=== PATIENT | female | born 1970 | race Caucasian/White ===

== ENCOUNTER 2017-05-27 14:38 | Emergency (ER) | payer OTHER, MEDICAID ==
[2017-05-27 14:48] VITALS: BP 160/78; BMI 25.7
[2017-05-27] MEDS ORDERED: LR 1000 ML IV 1,000 ML IV ONE ×2 (15:16→15:19)
--- NOTE | 2017-05-27 15:16 | DR.NAUSEAF ---
HPI - Time Seen Time seen: 15:05 - Primary Care Physician Primary Care Physician: STAR TAFOYA MD - Complaints Chief Complaint Doctors Comments: Patient presents to the ED for evaluation of nausea and vomiting for two days. Chief Complaint:: PT C/O INCREASED WEIGHT LOSS AND NOT BEING ABLE TO KEEP ANYTHING DOWN PT C/O BEING WEAK AND HX SEIZURES, Self Treatment fo Chief Complaint: PT C/O SMOKING THC FOR HER HEALTH .. BR - Source History Provided: Patient - Mode of Arrival Mode of Arrival: Ambulatory - Timing Onset of Chief Complaint: 04/30/15 PMH - PMH Past Medical History: No Past Surgical History: Yes Past Surgical History Comment: C-SECTIONS TIMES ONE, EDOMETRIOSIS . - Family History History of Family Medical Conditions: No - Social History Does patient currently use any type of tobacco product: No Have you used tobacco products in the last 12 months: No Type of Tobacco Use: None Does any household member use tobacco: No Alcohol Use: None Do you use any recreational Drugs:: No Lives With: Family Lives Where: Home - infectious screening In the last 2 months have you had wt loss of >10#?: NO Have you had fever, night sweats or hemotysis?: No Have you traveled outside the country in the last 6 months?: No Isolation: Standard ROS - Review of Systems Eyes: No Symptoms Reported ENTM: No Symptoms Reported Respiratoy: No Symptoms Reported Cardiovascular: No Symptoms Reported Gastrointestinal/Abdominal: No Symptoms Reported Genitourinary: No Symptoms Reported Neurological: No Symptoms Reported Musculoskeletal: No Symptoms Reported Integumentary: No Symptoms Reported Hematologic/Lymphatic: No Symptoms Reported Endocrine: No Symptoms Reported Psychiatric: No Symptoms Reported All Other Systems: Reviewed and Negative PE - Vital Signs Vitals: Temperature 98.6 F Pulse Rate 112 Respiratory Rate 20 Blood Pressure 160/78 O2 Sat by Pulse Oximetry 98 - General Limitations: No Limitations General Appearance: Alert, In No Apparent Distress - Head Head Exam: Normal Inspection, Atraumatic - Eyes Eye exam: Normal Appearance, PERRL, EOMI - ENT ENT Exam: Normal Exam - Neck Neck Exam: Normal Inspection, Full ROM - Chest Chest Inspection: Normal Inspection, Symmetric Chest Wall Rise - Respiratory Respiratory Exam: Normal Lung Sounds Bilat, Accessory Muscle Use Respiratory Exam: Bilateral Clear to Auscultation - Cardiovascular Cardiovascular Exam: Regular Rate, Normal Rhythm - Abdominal Exam Abdominal Exam: Normal Inspection, Normal Bowel Sounds Abdominal Tenderness: negative: RUQ, RLQ, LUQ, LLQ, Epigastrium, Suprapubic, Diffuse, Mild, Moderate, Severe, Other - Rectal Rectal Exam: Deferred - External Exam: Female: Deferred : Speculum Exam (Female): Deferred : Bimanual Exam (female): Deferred - Back Back Exam: Normal Inspection, Full ROM - Neurologic Neurological Exam: Alert, Oriented X3, CN II-XII Intact - Psychiatric Psychiatric Exam: Normal Affect - Skin Skin Exam: Warm, Dry, Intact Course - Reevaluation 1st: Improved ROR - Labs Reviewed Laboratory Results Reviewed?: Yes (low potassium) Result Diagrams: 05/27/17 15:29 05/27/17 15:29 Laboratory: WBC 8.6 X10^3/uL (3.6-10.0) 05/27/17 15:29 RBC 4.19 X10^6/uL (3.5-5.4) 05/27/17 15:29 Hgb 12.6 g/dL (12.0-16.0) 05/27/17 15:29 Hct 36.7 % (36.0-47.0) 05/27/17 15:29 MCV 87.6 fL (80.0-100.0) 05/27/17 15:29 MCH 30.1 pg (27.0-34.0) 05/27/17 15:29 MCHC 34.4 g/dL (33.0-35.0) 05/27/17 15:29 RDW 13.8 % (11.6-16.5) 05/27/17 15:29 Plt Count 175 X10^3/uL (150.0-450.0) 05/27/17 15:29 MPV 9.9 fL (7.4-11.0) 05/27/17 15:29 Neut % (Auto) 66.3 % (42.0-75.0) 05/27/17 15:29 Lymph % (Auto) 24.2 % (21.0-51.0) 05/27/17 15:29 Cook % (Auto) 7.1 % (0.0-13.0) 05/27/17 15:29 Eos % (Auto) 1.9 % (0.9-2.9) 05/27/17 15:29 Baso % (Auto) 0.5 % (0.2-1.0) 05/27/17 15:29 Neut # (Auto) 5.7 x10^3/uL (2.2-4.8) H 05/27/17 15:29 Lymph # (Auto) 2.1 X10^3/uL (1.3-2.9) 05/27/17 15:29 Cook # (Auto) 0.6 x10^3/uL (0.3-0.8) 05/27/17 15:29 Eos # (Auto) 0.2 x10^3/uL (0.0-0.2) 05/27/17 15:29 Baso # (Auto) 0.0 X10^3/uL (0.0-0.1) 05/27/17 15: Absolute Nucleated RBC 0.0 /100WBC 05/27/17 15: Sodium 141 mmol/L (136-145) 05/27/17 15:29 Corrected Sodium TNP 05/27/17 15: Potassium 2.8 mmol/L (3.5-5.1) L* 05/27/17 15: Chloride 105 mmol/L (98-107) 05/27/17 15: Carbon Dioxide 19.6 mmol/L (21-32) L 05/27/17 15:29 BUN 8 mg/dL (7-18) 05/27/17 15: Creatinine 0.97 mg/dL (0.55-1.02) 05/27/17 15:29 Est GFR (MDRD) Af Amer > 60 (>60) 05/27/17 15:29 Est GFR (MDRD) Non-Af > 60 (>60) 05/27/17 15:29 Glucose 83 mg/dL (65-99) 05/27/17 15: Calcium 8.3 mg/dL (8.5-10.1) L 05/27/17 15:29 Corrected Calcium TNP 05/27/17 15:29 Total Bilirubin 0.50 mg/dL (0.2-1.0) 05/27/17 15: AST 30 Units/L (15-37) 05/27/17 15:29 ALT 31 Units/L (12-78) 05/27/17 15: Alkaline Phosphatase 67 Units/L (46-116) 05/27/17 15:29 C-Reactive Protein 3.10 mg/L (0-3.0) H 05/27/17 15: Total Protein 7.0 g/dL (6.4-8.2) 05/27/17 15: Albumin 3.9 g/dL (3.4-5.0) 05/27/17 15: Globulin 3.1 g/dL (2.5-4.5) 05/27/17 15: Albumin/Globulin Ratio 1.3 Ratio (1.1-2.1) 05/27/17 15:29 Specimen Type Random urine 05/27/17 15:25 Urine Color Yellow (YELLOW) 05/27/17 15:25 Urine Appearance Clear (CLEAR) 05/27/17 15:25 Urine pH 6.5 (5.0 - 8.0) 05/27/17 15:25 Ur Specific Lizella 1.010 (1.000-1.030) 05/27/17 15:25 Urine Protein Negative (NEGATIVE) 05/27/17 15:25 Urine Glucose (UA) Negative (NEGATIVE) 05/27/17 15:25 Urine Ketones 3+ (NEGATIVE) 05/27/17 15:25 Urine Occult Blood 1+ (NEGATIVE) 05/27/17 15:25 Urine Nitrite Negative (NEGATIVE) 05/27/17 15:25 Urine Bilirubin Negative (NEGATIVE) 05/27/17 15:25 Urine Urobilinogen Normal (NORMAL) 05/27/17 15:25 Ur Leukocyte Esterase Negative (NEGATIVE) 05/27/17 15:25 Urine RBC 0-2 /HPF (NONE SEEN) 05/27/17 15:25 Urine WBC 0-2 /HPF (NONE SEEN) 05/27/17 15:25 Ur Squamous Epith Cells Few /HPF (NEGATIVE) 05/27/17 15:25 Urine Bacteria Trace /HPF (NEGATIVE) 05/27/17 15:25 Ur Culture Indicated? No/not indicated 05/27/17 15:25 - XRAY XRAY Interpreted by: Radiologist (Acute Abdomen series: No acute cardiopulmonary disease. No evidence for acute abdominal pathology identified) - Diagnosis Discharge Problem: Hypokalemia, Gastroenteritis, Dehydration, mild - Discharge Plan Condition: Stable - Follow ups/Referrals Follow ups/Referrals: [facility],None [Primary Care Provider] - 3 days - Instructions
[2017-05-27 15:46] LABS: BILIRUBIN,URINE NEGATIVE (NEGATIVE); BLOOD/HEMOGLOBIN,URINE 1+ (NEGATIVE); GLUCOSE, URINE NEGATIVE (NEGATIVE); KETONES,URINE 3+ (NEGATIVE); LEUKOCYTE ESTERASE ,URINE NEGATIVE (NEGATIVE); NITRITES,URINE NEGATIVE (NEGATIVE); PH,URINE 6.5 (5.0 - 8.0); PROTEIN,URINE NEGATIVE (NEGATIVE); UROBILINOGEN,URINE NORMAL (NORMAL)
[2017-05-27 15:46] LABS: BASOPHILS % (AUTO) 0.5 % (0.2-1.0); EOSINOPHILS # (AUTO) 0.2 x10^3/uL (0.0-0.2); EOSINOPHILS % (AUTO) 1.9 % (0.9-2.9); HEMATOCRIT 36.7 % (36.0-47.0); HEMOGLOBIN 12.6 g/dL (12.0-16.0); LYMPHOCYTES # (AUTO) 2.1 X10^3/uL (1.3-2.9); LYMPHOCYTES % (AUTO) 24.2 % (21.0-51.0); MEAN CORPUSCULAR HEMOGLOBIN 30.1 pg (27.0-34.0); MEAN CORPUSCULAR HGB CONC 34.4 g/dL (33.0-35.0); MEAN CORPUSCULAR VOLUME 87.6 fL (80.0-100.0); MEAN PLATELET VOLUME 9.9 fL (7.4-11.0); MONOCYTES # (AUTO) 0.6 x10^3/uL (0.3-0.8); MONOCYTES % (AUTO) 7.1 % (0.0-13.0); NEUTROPHILS # (AUTO) 5.7 x10^3/uL (2.2-4.8); NEUTROPHILS % (AUTO) 66.3 % (42.0-75.0); PLATELET COUNT 175 X10^3/uL (150.0-450.0); RED BLOOD COUNT 4.19 X10^6/uL (3.5-5.4); RED CELL DISTRIBUTION WIDTH 13.8 % (11.6-16.5); WHITE BLOOD COUNT 8.6 X10^3/uL (3.6-10.0)
[2017-05-27 15:52] LABS: APPEARANCE,URINE CLEAR (CLEAR); BACTERIA,URINE TRACE /HPF (NEGATIVE); COLOR,URINE YELLOW (YELLOW); RBC,URINE 0-2 /HPF (NONE SEEN); SQUAMOUS EPITHELIAL CELL,UR FEW /HPF (NEGATIVE)
--- NOTE | 2017-05-27 15:54 | RAD ---
HISTORY: Increased weight loss and unable to keep anything down. Study: Acute abdominal series Comparison: None. Findings: The trachea is midline. The cardiac silhouette is unremarkable. The lungs are clear without focal i nfiltrate or effusion. The bony thorax is unremarkable. Flat plate and upright evaluation of the abdomen demonstrates a nonspecific/nonobstructive bowel gas pattern with air and stool to the level of the rectum. No obvious free air. Radiopaque densities over lying the large bowel, which may represent pill fragments. No pathological soft tissue mass or calcif ication can be observed. The bony structures are grossly intact. IMPRESSION: 1. No acute cardiopulmonary disease. 2. No evidence for acute abdominal pathology identified. Reported By:
[2017-05-27 15:57] LABS: ALANINE AMINOTRANSFERASE 31 Units/L (12-78); ALBUMIN 3.9 g/dL (3.4-5.0); ALKALINE PHOSPHATASE 67 Units/L (46-116); ASPARTATE AMINO TRANSFERASE 30 Units/L (15-37); BLOOD UREA NITROGEN 8 mg/dL (7-18); CALCIUM 8.3 mg/dL (8.5-10.1); CARBON DIOXIDE 19.6 mmol/L (21-32); CHLORIDE 105 mmol/L (98-107); CREATININE 0.97 mg/dL (0.55-1.02); SODIUM 141 mmol/L (136-145); eGFR BLACK RACES > 60 (>60); eGFR NON BLACK RACES > 60 (>60)
[2017-05-27] MEDS ORDERED: K-LYTE EFFERVESCENT PO STA (16:02)
[2017-05-27] MEDS ORDERED: K-LYTE EFFERVESCENT ONE (16:04)
[2017-05-27] MEDS ORDERED: ZOFRAN INJ 4 MG VIAL IVP ONE (16:46)
[2017-05-27] MEDS ORDERED: ZOFRAN INJ 4 MG VIAL ONE (16:48)
== END 2017-05-27 17:45 | disposition home or self-care (01) ==
LOC: ER 14:54
DX: K52.89 Other specified noninfective gastroenteritis and colitis (principal); E86.0 Dehydration; E87.6 Hypokalemia
CPT/HCPCS: 36415; 74022; 80053; 81001; 85025; 86140; 96365; 96367; 96374; 99282; 99284; A4222; J2405; J7120